=== PATIENT | female | born 1950 | race Caucasian/White ===

== ENCOUNTER 2025-02-22 23:41 | Inpatient (IN) | payer MEDICARE, BC, SELFPAY ==
[2025-02-22] VITALS (57 sets, daily range): BP systolic 59–106; BP diastolic 33–83
[2025-02-22] MEDS: NSS 500 IV ×2 (17:19→17:58)
[2025-02-22 18:02] LABS: ALT (SGPT) 19 U/L (0-35); AST (SGOT) 23 U/L (14-36); Albumin 2.0 g/dl (3.5-5.0); Alkaline Phosphatase 93 U/L (38-126); Blood Urea Nitrogen 28 mg/dl (7-17); Calcium 7.1 mg/dl (8.4-10.2); Carbon Dioxide 17 mmol/L (22-30); Chloride 106 mmol/L (98-107); Estimated Creatinine Clearance 58 ml/min; Glucose 98 mg/dl (70-99); Lipase 33 U/L (23-300); Potassium 4.3 mmol/L (3.5-5.1); Sodium 131 mmol/L (135-145); Total Protein 4.7 g/dl (6.3-8.2); eGFR > 60.00
[2025-02-22 18:05] LABS: Hematocrit 34.3 % (37.0-47.0); Hemoglobin 12.8 g/dL (12.0-16.0); Mean Corp Hgb Conc. 37.3 g/dL (33.0-37.0); Mean Corpuscular Volume 85.5 fL (81.0-99.0); Red Cell Dist. Width 22.8 % (11.5-14.5)
[2025-02-22] MEDS: SUBLIMAZE 25 MCG IV ×3 (18:16→21:16)
[2025-02-22 18:20] LABS: Absolute Neutrophils -Man Diff 12.2 10^3/uL (1.4-6.5); Normal RBC Morphology Yes; Platelet Count 613 10^3/uL (130-400); Platelets Checked Yes; Total Cells Counted 100
--- NOTE | 2025-02-22 18:37 | ED.GENMED ---
History of Present Illness
General
Chief Complaint: Abdominal Pain
Source: patient
Exam Limitations: none
Time Seen by Provider: 02/22/25 17:17
Nursing documentation reviewed up to this point in time: agreed with
History of Present Illness
History of Present Illness:
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
Abdominal pain described as sharp, diffuse, without any alleviating or exacerbating factors. Denies trauma. Denies fever or chills. Patient reports lack of bowel movements. Denies chest pain or shortness of breath. Patient reports decreased
appetite. Upon arrival, patient is found to be hypotensive.
Review of Systems
Review of Systems
Allergies reviewed?: Yes
All Other Systems: ROS reviewed and negative except as documented in HPI and ROS
Constitutional: Reports no symptoms; Denies fever
Respiratory: Reports no symptoms
Cardiac: Reports no symptoms
ABD/GI: Reports abdominal pain; Denies vomiting or diarrhea
Musculoskeletal: Reports no symptoms
Skin: Reports no symptoms
Neurological: Reports weakness
Phy Exam
Physical Exam
Physical Exam:
Physical Exam
General: moderate distress, acutely ill. afebrile. cachetic appearing. hypotensive
Head: nc/at. eomi
Neck: supple. normal range of motion.
Heart: s1/s2 regular rate and rhythm
Lungs: no acute respiratory distress. clear bilaterally
Abdomen: normal bowel sounds. no distention. mild diffuse tenderness to palpation
Neuro: alert and oriented x 3. no focal neurological deficits
Skin: no rash
Psychiatric: well kept. interactive and cooperative
Extremities: no edema. no calf tenderness.
Course
Orders/Labs/Results
Orders:
Orders
02/22/25 16:59
CXR [CR Chest Portable - 1 View] Urgent
Comment:
Reason For Exam: picc placement
Reason Study Needs to be Portable: Patient Unstable
02/22/25 17:01
Complete Blood Count/With Diff Urgent
Manual Differential Urgent
02/22/25 17:17
0.9% Sodium Chloride 500 ml [Nss] 500 ml IV BOLUS
02/22/25 17:39
Lactic Acid Urgent
02/22/25 17:40
Comprehensive Metabolic Panel Urgent
Lipase Urgent
02/22/25 17:57
0.9% Sodium Chloride 500 ml [Nss] 500 ml IV BOLUS
02/22/25 18:07
CT Abd/pelvis W Iv Cont Urgent
Comment:
Reason For Exam: abdominal pain w elevated lactate
Fentanyl Citrate/Pf [Sublimaze] 25 mcg IV NOW STA
02/22/25 19:45
NORepinephrine 4 MG/250 ML [Levophed] 4 mg in 250 ml IV PER PROTOCOL
Initial dose in mcg/min, then titrate:: 2
Titrate to keep:: SBP > 90 mmHg
Titrate by mcg/min:: 1-2 mcg/min
Frequency of titrations (minutes):: 5
Maximum dose in ICU in mcg/min:: 30
Maximum dose in IMU in mcg/min:: 8
Maximum dose in IVU in mcg/min:: 4
Begin to taper infusion when:: Remained at goal for 4hrs
Taper by mcg/min:: 1-2 mcg/min
Frequency of taper (minutes) if patient maintains goal:: 30
Taper to off?: Yes
If infusion off & no longer maintaining goal:: Contact Provider
02/22/25 20:01
Fentanyl Citrate/Pf [Sublimaze] 25 mcg IV NOW STA
02/22/25 20:02
Fentanyl Citrate/Pf [Sublimaze] 100 mcg .ROUTE .STK-MED ONE
02/22/25 21:15
Fentanyl Citrate/Pf [Sublimaze] 25 mcg IV NOW STA
02/22/25 21:32
CXR [CR Chest Portable - 1 View] Urgent
Comment:
Reason For Exam: ng tube
Reason Study Needs to be Portable: Patient Unstable
02/22/25 22:00
0.9% Sodium Chloride 1000 ml [Nss] 1,000 ml IV 100 mls/hr
02/22/25 22:43
DOPamine 400 MG/D5W 250 ML [DOPamine] 400 mg in 250 ml .ROUTE .STK-MED
02/22/25 22:45
DOPamine 400 MG/D5W 250 ML [DOPamine] 400 mg in 250 ml IV PER PROTOCOL
Initial dose in mcg/kg/min, then titrate:: 10
Titrate to keep:: SBP > 90 mmHg
Titrate by mcg/kg/min:: 1-2 mcg/kg/min
Frequency of titrations (minutes):: 15
Maximum dose in ICU in mcg/kg/min:: 20
Maximum dose in IMU in mcg/kg/min:: 10
Begin to taper infusion when:: Remained at goal for 4hrs
Taper by mcg/kg/min:: 1-2 mcg/kg/min
Frequency of taper (minutes) if patient maintains goal:: 30
Taper to off?: Yes
If infusion off & no longer maintaining goal:: Contact Provider
02/22/25 23:17
Admit/Transfer Patient As Directed
Co-Sign Provider:
Level of Care: Inpatient admission
Assign to:: ICU
Physician / Group: Hazel
Diagnosis: Perforated Bowel
Reason for Hospitalization: Pressors, IV abx
Expected length of stay greater than two midnights?: Yes
ELOS- Estimated Length of Stay in days: 3
I certify the patient meets the requirements for IP care: Yes
02/22/25 23:18
PRN Pain Medication Management As Directed
May give lesser potent ordered pain med per pt: Yes
preference::
Protocol:: Medication orders for pain may be administered in a
manner that supports deferring to patient preference
when the pt is:
- Requesting an ordered lesser potent pain medication.
Least to most potent pain medications are defined
as: acetaminophen < NSAID < tramadol < opioids
(morphine, oxycodone, hydromorphone).
- Requesting a lesser dose of the same medication IF
ORDERED.
- Requesting a less intrusive route of administration
if both routes are prescribed by the provider (PO <
IV).
02/22/25 23:19
Code Status As Directed
Resuscitation Status: Full Code
02/22/25 23:20
EPINEPHrine [Adrenalin 1 mg/10 ml] 1 mg .ROUTE .STK-MED ONE
02/22/25 23:28
Portable Chest Xray [CR Chest Portable - 1 View] Urgent
Comment:
Reason For Exam: post intubation
Reason Study Needs to be Portable: Patient Unstable
02/22/25 23:32
FentaNYL 1,000 MCG/100 ML [Sublimaze] 1,000 mcg in 100 ml .ROUTE .STK-MED
02/22/25 23:40
EKG [Electrocardiogram (*1)] Urgent
Reason for Study: Fatigue / Weakness
02/22/25 23:41
EKG- Treatment ONCE
02/22/25 23:45
Piperacillin/Tazo 3.375 Gram [Zosyn] 3.375 gram in 50 ml IV Q6H
02/23/25 01:47
FentaNYL 1,000 MCG/100 ML [Sublimaze] 1,000 mcg in 100 ml IV PER PROTOCOL
Indication:: Light Sedation
Begin Infusion:: Now
Goal:: pain score </= 1, CPOT 0-2
Maximum dose in mcg/hr:: 300
Continue currently infusing dose and titrate:: Yes
Titration Instructions:: Titrate every 30 minutes if patient exhibits signs of pain or discomfort
Titration Instructions:: (pain score >/= 2, CPOT >/= 3).
Titration Instructions:: Administer bolus dose and increase infusion by 25 mcg/hr.
Taper Instructions:: If pain score at goal for 4 consecutive hours (pain score </= 1, CPOT 0-2)
Taper Instructions:: decrease infusion by 50 mcg/hr every 2 hours.
Taper Instructions:: When dose </= 50 mcg/hr may turn infusion off and consider PRN
Taper Instructions:: intermittent bolus doses only.
Over-sedation Instructions:: If CPOT 0-2 (goal) and RASS -3 to -5 (below goal) decrease sedative by 50%
Over-sedation Instructions:: first. If pain score remains at goal and RASS remains below goal in 1 hour,
Over-sedation Instructions:: decrease opioid infusion by 50%.
Notify provider:: immediately if pt exhibits: chest wall rigidity, hemodynamic instability,
Notify provider:: agitation/pain despite maximum dosing, pain when RASS below goal.
Additional Instructions:: Patient MUST be mechanically ventilated.
Fentanyl Citrate/Pf [Sublimaze] 50 mcg IV [id number] PRN
02/23/25 01:47
Consult Notification Routine
Specialty to Notify: Flight Kitchen Manager
Flight Kitchen Manager Consult Routine
Consulting Provider: Gulshan Tong
Was physician already notified: No
Reason for consult: ICU care, perforated bowel
SURGICAL CONSULT Routine
Consulting Provider: Gulshan Montejo
Was physician already notified: Yes
Activity As Directed
Activity Level: Bedrest
Hoang Catheter [Catheter- Indwelling] As Directed
Reason for insertion: I&O's Critical Care
Assess insertion reason daily.Remove if no longer applicable: Yes
Gastrointestinal Tubes As Directed
To suction?: Yes
Type of suction: Low intermittent
I&O [Intake/ Output] As Directed
Frequency: q12h
Pneumatic Compression Sleeves As Directed
Type: Knee high
Vital Signs As Directed
Frequency: Per unit guidelines
Warming [place] [Heating/Cooling [place]] As Directed
Mode:: Automatic
Type of thermoregulation:: Heating
PATIENT'S Goal Temperature:: 96.8 F (36 C)
Comments/Additional Instructions:: Temperature and skin assessment per unit protocol
Ventilator Initial Settings [RESP] Routine
DX Deep Vein Thrombosis Video Routine
02/23/25 05:26
Complete Blood Count/No Diff IN AM
Comprehensive Metabolic Panel IN AM
Lactic Acid Q4H
Comment: repeat q4 hours x 4 or until less than 2 mmol/L
02/23/25 Breakfast
NPO
Allow oral meds: No
Allow clear liquids: No
NPO with Ice Chips: No
02/23/25 08:00
Pantoprazole [Protonix IV] 40 mg IV DAILY
Abnormal Lab Results
02/22/25 02/22/25 02/22/25
17:01 17:39 17:40
WBC 14.3 H 10^3/uL
(4.8-10.8)
RBC 4.01 L 10^6/uL
(4.20-5.40)
Hct 34.3 L %
(37.0-47.0)
MCH 31.9 H pg
(27.0-31.0)
MCHC 37.3 H g/dL
(33.0-37.0)
RDW 22.8 H %
(11.5-14.5)
Plt Count 613 H 10^3/uL
(130-400)
Abs Neuts (Manual) 12.2 H 10^3/uL
(1.4-6.5)
Band Neutrophils 15 H %
(0-3)
Lymphocytes (Manual) 5 L %
(20-51)
Sodium 131 L mmol/L
(135-145)
Carbon Dioxide 17 L mmol/L
(22-30)
BUN 28 H mg/dl
(7-17)
Lactic Acid 6.3 H* mmol/L
(0.7-2.0)
Calcium 7.1 L mg/dl
(8.4-10.2)
Total Protein 4.7 L g/dl
(6.3-8.2)
Albumin 2.0 L g/dl
(3.5-5.0)
02/22/25 17:01
02/22/25 17:40
Vital Signs
Initial and Last Documented VS:
Initial Vital Signs
Pulse Resp BP Pulse Ox
95 32 80/52 94
02/22/25 16:33 02/22/25 16:33 02/22/25 16:33 02/22/25 16:33
Last Documented Vital Signs
Temp Pulse Resp BP Pulse Ox
92.0 F L 92 24 115/93 61
02/23/25 06:00 02/23/25 06:00 02/23/25 06:00 02/23/25 06:00 02/23/25 06:00
Procedures
Intubations
Procedure completed by: Brandan Lopez M.D.
Method of Intubation: glidescope
Tube size (cm): 7.5
Placement confirmed by: auscutation and CXR
Breath sounds after intubation: equal
Intubation complications: no complications
MDM/Problems Addressed
MDM/Problems Addressed:
CT report reviewed and discussed with patient and family. Patient is currently full code.
Patient remains hypotensive despite IV fluid administration along with persistent pain. As such, patient started on Levophed infusion and NG tube placed in ED.
On-call surgery, Dr. Montejo, notified via Bryant text. Patient will be admitted to ICU for further evaluation and treatment.
Patient evaluated in ED by Dr. Montejo, due to patient's instability along with significant findings noted on CT scan. Afterwards, discussed patient's clinical condition send findings with [facility] surgical oncology service
(). In light of patient's unstable condition, decision made to transfer patient to the OR at [facility] for acute intervention. Afterwards, after patient is stabilized, patient will be transferred to [facility] for further evaluation and treatment.
Pt requiring dopamine infusion as well, due to persistent hypotension despite max dose of Levophed infusion. Discussed with patient and her son at bedside extensively regarding patient's clinical condition. At this time, patient wishes to proceed
to OR and agrees to be intubated for airway protection as well as worsening mental status.
Patient successfully intubated in ED and started on fentanyl infusion.
Transfer consent on the chart, signed by patient's son.
Critical care statement: A total of 100 minutes of critical care time was provided for this patient. This includes management of unstable vital signs, evaluation of the patient at bedside, reviewing the patient's pertinent medical records,
discussion with consultants, review of old EKGs and review of pertinent medical records. This time with separate from time utilized to perform the aforementioned documented procedures
*Pulse Oximetry
SaO2: 99
Nasal Cannula flow liters per minute: 2
Oxygen Mode of Delivery: Room air
Patient hypoxic: yes
*Critical Care Note
Total Time (30-74mins, 75-104mins- exclusive of procedures): 100 min
ED Attending Note
-
Portions of this chart may have been created with voice recognition software.� Occasional wrong word or��sound alike� substitutions may have occurred due to the inherent limitations of voice recognition software.
Discharge Plan
Departure
Patient Disposition: Admit
Date of Disposition: 02/22/25
Time of Disposition: 21:39
Admit to: ICU
Presentation/result/management discussed w/ accepting MD/DO: Hospitalist
Discharge Problem:
SBO (small bowel obstruction)
Interventions
Interventions:
*Risk Screen - Suicide Last Done: 02/22/25 16:33
*General Assessment Last Done: 02/22/25 16:33
*Neglect/Abuse Screening Last Done: 02/22/25 16:33
*ED- Fall Risk Assessment Last Done: 02/23/25 00:30
*ED COVID-19 Vaccine History Last Done: 02/22/25 16:33
*ED Influenza Vaccine History Last Done: 02/22/25 16:33
*Nursing Disposition Last Done: 02/23/25 00:30
PT-Nubohg-Amshjkhwih Assessment Last Done: 02/22/25 23:15
Discharge Date and Time
Discharge Date/Time: 02/23/25 00:30
[2025-02-22] MEDS: LEVOPHED 250 IV (19:46)
[2025-02-22] MEDS: NSS 1000 IV (21:50)
--- NOTE | 2025-02-22 23:17 | CON.GS ---
Medical History
-
Chief Complaint: Abdominal pain, altered mental status
History of Present Illness:
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 Her son reports that her tube has had issues with
leakage of ascites since placement. She was ultimately discharged to a senior living. She has had worsening pain over the past week and been in contact with her Oncologist at [facility]. There were plans for a paracentesis either today or tomorrow.
Due to worsening pain she presented to the ER. No fevers or chills. No nausea or vomitting. She has been previously treated and managed by [facility] Oncology and Surg Onc.
Past Medical History
Past Medical History: Cancer (Stage IV neuroendocrine), GERD and Other (Malignant bowel obstructions)
Past Surgical History: Other (PEG)
Social History
Tobacco: Non-Smoker
Alcohol: None
Drug: None
Family History
Family History: Reviewed & Not Pertinent
Allergies / Home Medications
Allergy/AdvReac Type Severity Reaction Status Date / Time
Sulfa (Sulfonamide Allergy Unknown Verified 02/22/25 16:49
Antibiotics)
�Medication �Instructions �Recorded �Confirmed �Type
acetaminophen 325 mg tablet 650 mg PO Q6HPRN PRN mild pain 02/22/25 02/22/25 History
(Tylenol)
bisacodyl 10 mg rectal suppository 10 mg NH HSPRN PRN if no bm aftr 02/22/25 02/22/25 History
(Dulcolax (bisacodyl)) mom
magnesium hydroxide 400 mg/5 mL 2,400 mg PO [id number] PRN 02/22/25 02/22/25 History
oral suspension (Milk of Magnesia) constipation
metoclopramide HCl 5 mg tablet 5 mg PO Q8HPRN PRN nausea 02/22/25 02/22/25 History
(Reglan)
mirtazapine 15 mg tablet (Remeron) 15 mg PO HS Sleep 02/22/25 02/22/25 History
omeprazole 20 mg tablet,delayed 20 mg PO DAILY Gastrointestinal 02/22/25 02/22/25 History
release Issue
ondansetron HCl 4 mg tablet 4 mg PO Q8HPRN PRN nausea 02/22/25 02/22/25 History
oxycodone 5 mg tablet 5 mg PO Q6HPRN PRN severe pains 02/22/25 02/22/25 History
sodium phosphates 19 gram-7 118 ml NH DAILYPRN PRN if n bm 02/22/25 02/22/25 History
gram/118 mL enema (Fleet Enema) aftr dulcolax
Review of Systems
-
A 10 point review of systems was completed, and was negative except as per HPI.
Physical Exam
Vital Signs
Temp Pulse Resp BP Pulse Ox
94.9 F L 92 26 63/46 93
02/22/25 22:35 02/22/25 23:15 02/22/25 23:15 02/22/25 23:10 02/22/25 23:00
02/21/25 02/22/25 02/23/25
06:59 06:59 06:59
Actual Weight 55.5 kg
Lab Results
02/22/25 17:01
02/22/25 17:40
WBC 14.3 10^3/uL (4.8-10.8) H 02/22/25 17:01
Hgb 12.8 g/dL (12.0-16.0) 02/22/25 17:01
Hct 34.3 % (37.0-47.0) L 02/22/25 17:01
Plt Count 613 10^3/uL (130-400) H 02/22/25 17:01
Physical Exam
General: Pain, Intubated (Malnourished) and Other
Respiratory: Accessory Resp Muscle Use
Cardiac: Irregular Rhythm (Tachycardic)
GI: Soft, Tender (Diffusely), Distended, Incisions (No prior incisions) and Other (Large volume of ascites leaking around G-tube)
Musculoskeletal: Edema (+2)
Skin: Warm and Dry
Data Reviewed
-
Radiology: Image Personally Visualized and interpreted and Report Reviewed by me
CT Scan: Image Personally Visualized and interpreted and Report Reviewed by me
Labs: Labs Reviewed by me
Assessment / Plan
-
Patient is a 74 yo F p/w septic shock likely related to a perforated viscus secondary to PEG tube dislodgement
Clinically unstable, intubated and on pressors. CT demonstrates large volume of ascites, free air, and G-tube no longer within a loop of bowel. Options for management were reviewed. Bowel rest and antibiotics are unlikely to resolve this issue.
That being said, given her underlying diagnosis, this option and a focus on comfort measures was reviewed. Her only chance of survival is surgical exploration with repair of perforation, possible bowel resection. Son and DPOA was present and
wishes to proceed. Patient expresses that she wishes to be a full code at this time, including intubation.
Plan for an exploratory laparotomy, possible bowel resection. The procedure itself, as well as the risks, benefits, and alternatives was discussed. Specifically, we discussed the risks of bleeding, infection, injury to surrounding structures,
hernia formation, and general anesthetic complications. We discussed the likelihood of prolonged intubation and hospital course. All questions answered. Consent signed.
-- Exploratory laparotomy, possible bowel resection
-- NPO, IVF
-- Abx: Zosyn
-- Admit to ICU post-op
-- Transfer to [facility], acepted to ICU bed for post-op care
[2025-02-22] MEDS: ZOSYN 50 IV (23:32)
--- NOTE | 2025-02-22 23:45 | HPS.HSE ---
Family Physician
-
Family Physician: Joe Rivera,
Chief Complaint
-
Abdominal pain
History of Present Illness
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
abdominal pain.
She was recently hospitalized and is status post PEG tube placement. She had ascites. After that hospitalization [facility] According to son patient has been having pain since at least Saturday. Initially
thought this was secondary to ascites as the PEG tube site was leaking. There was blood drawn and plans for a paracentesis. However patient continued to have significant pain. Initially was managed with Tylenol but more recently they had to give
her oxycodone. Today the patient was in extreme pain and son requested that she be transferred to the emergency department.
By time I saw her in the emergency department patient was intubated. She was septic on pressors status post IV fluids. She has a PICC line, she has a urinary catheter. She is on 2 pressors.
Leukocytosis with to 14.3 with 15% bands, hemoglobin 12.8 platelets 613, electrolytes were normal except for a bicarb of 17 with a BUN of 20 and a creatinine of 0.7. Lactic acid was 6.3. LFTs were normal. Lipase was normal.
Chest x-ray status post intubation without any acute infiltrates.
CT a/p
Patient has a reported history of gastrostomy tube placement recently. Tube with balloon or button in the anterior left upper quadrant is not within a bowel loop.
There is a large amount of free intraperitoneal air.
Large amount of ascites within the abdomen and pelvis.
CT findings compatible with small bowel obstruction, likely on the basis of peritoneal carcinomatosis involving mid to distal small bowel loops.
Thickening of dilated small bowel loops involving the jejunum and possibly the proximal ileum. Etiology for this bowel wall thickening is uncertain, with differential considerations including ischemia and enteritis.
Evidence for hepatic metastatic disease.
The main portal vein is unable to be confidently visualized. There is perfusion anomaly involving the right lobe the liver.
Medical History
Past Medical History
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
Past Surgical History: Reports Other
Social History
Tobacco: Non-smoker
Alcohol: None
Drug: None
Family History
Family History: Not pertinent
Allergies / Home Medications
Allergies reflects when Allergies were last updated in [email or web address].
Home Medications with original date entered in [email or web address]
Allergy/Medication List:
Allergies
Allergy/AdvReac Type Severity Reaction Status Date / Time
Sulfa (Sulfonamide Allergy Unknown Verified 02/22/25 16:49
Antibiotics)
Home Medications
acetaminophen 325 mg tablet (Tylenol) 650 mg PO Q6HPRN PRN mild pain 02/22/25
bisacodyl 10 mg rectal suppository (Dulcolax (bisacodyl)) 10 mg TN HSPRN PRN if no bm aftr mom 02/22/25
magnesium hydroxide 400 mg/5 mL oral suspension (Milk of Magnesia) 2,400 mg PO [id number] PRN constipation 02/22/25
metoclopramide HCl 5 mg tablet (Reglan) 5 mg PO Q8HPRN PRN nausea 02/22/25
mirtazapine 15 mg tablet (Remeron) 15 mg PO HS Sleep 02/22/25
omeprazole 20 mg tablet,delayed release 20 mg PO DAILY Gastrointestinal Issue 02/22/25
ondansetron HCl 4 mg tablet 4 mg PO Q8HPRN PRN nausea 02/22/25
oxycodone 5 mg tablet 5 mg PO Q6HPRN PRN severe pains 02/22/25
sodium phosphates 19 gram-7 gram/118 mL enema (Fleet Enema) 118 ml TN DAILYPRN PRN if n bm aftr dulcolax 02/22/25
Review of Systems
-
Unable to obtain full review of systems at this time due to: Patient Intubation
Physical Exam
Vital Signs
Vital Signs
Temp Pulse Resp BP Pulse Ox
94.9 F L 86 12 65/55 93
02/22/25 22:35 02/22/25 23:35 02/22/25 23:35 02/22/25 23:35 02/22/25 23:00
Physical Exam
General: Other (Cachectic appearing, intubated)
HEENT: Anicteric and Atraumatic
Respiratory: Non Labored Respirations and Other (Intubated)
Cardiac: S1/S2 and Regular Rhythm
Breast: Deferred by me
GI: Peg Tube
Rectal: Deferred by Provider
Genito-urinary: Hoang
Musculoskeletal: No Edema
Skin: Warm
Neuro: Sedated
Laboratory Results
-
02/22/25 17:01
02/22/25 17:40
Laboratory Results
Lactic Acid 6.3 mmol/L (0.7-2.0) H* 02/22/25 17:39
Total Bilirubin 0.7 mg/dl (0.2-1.3) 02/22/25 17:40
AST 23 U/L (14-36) 02/22/25 17:40
ALT 19 U/L (0-35) 02/22/25 17:40
Alkaline Phosphatase 93 U/L (38-126) 02/22/25 17:40
Lipase 33 U/L (23-300) 02/22/25 17:40
Data Reviewed
-
CT Scan: Report Reviewed by me
Lab Data: Labs Reviewed by me
Old Records: Reviewed
Impression/Plan
-
IMPRESSION:
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
shock. Patient declined rapidly requiring pressors and intubated in the ED. Taken to the OR prior to my full evaluation. Findings and actions in OR include Large 1.5 cm perforation within the small bowel, closed with 2-0 Vicryl whip-stitch and
2-0 silk [place], 2. Smaller perforation of gastric body along greater curve at site of prior G-tube, closed with 2-0 silk 3. Extensive malignant disease with frozen abdomen and SBO resulting in significant associated small bowel ischemia (resection
of which incompatible with life; 50 cc remaining with no clear distal anastomotic option)
PLAN:
Sepsis with vascular shock and multiorgan failure 2/2 perforated viscous
- admit to icu
- intubated and on 4 pressors
- On IV abx
- fluid/electrolyte/acid base management per ICU
- guarded status
Perforated Viscous - Traumatic along site of G-tube, complicated by SBO and associated small bowel ischemia which cannot be resected
- due to findings above, there is high mortality
- No CPR, no defibrillation
- appreciate surgical management and will follow recs
- surgery consulted
DVT PPX - SCD
Codes status - DNR
--- NOTE | 2025-02-22 23:47 | W.SUR.PREOP ---
Pre-Operative Surgical Note
-
I have examined this patient prior to the performance of the scheduled procedure.
The patient's condition is unchanged from the time of the current History and
Physical and the patient is able to undergo the scheduled procedure.
[2025-02-23] VITALS (15 sets, daily range): BP systolic 99–143; BP diastolic 50–94
[2025-02-23] MEDS: SUBLIMAZE 2.5 IV
--- NOTE | 2025-02-23 01:41 | W.IMMPOSTOP ---
Surgical Immed Post Op Note
-
Primary Surgeon: Gustabo
Assisting Surgeon: None
Pre-op Diagnosis: Perforated viscus
Post-op Diagnosis: Perforated viscus and bowel ischemia
Procedure Performed: Exploratory laparotomy, primary repair of gastric and small bowel perforations
Anesthesia Type: General
Specimen / Cultures: None
Estimated Blood Loss: 7 cc
Complications: Critically ill with sepsis POA and ischemia incompatible with life
Operative Findings:
1. Large 1.5 cm perforation within the small bowel, closed with 2-0 Vicryl whip-stitch and 2-0 silk Lembert
2. Smaller perforation of gastric body along greater curve at site of prior G-tube, closed with 2-0 silk
3. 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
[2025-02-23] MEDS: LEVOPHED 250 IV ×2 (02:00→04:00)
[2025-02-23] MEDS: PITRESSIN 100 IV (02:05)
[2025-02-23 02:10] LABS: B.E. -16.5 mmol/L; O2 Saturation % 98.1 % (94-98); PCO2 39 mmHg (32-35); PO2 349 mmHg (83-108)
[2025-02-23 02:12] LABS: O2 Therapy VENT
[2025-02-23 02:13] LABS: HCO3 12.1 mmol/L (21-28)
[2025-02-23] MEDS: SODIUM BICARBONATE 1150 MEQ IV (02:27)
[2025-02-23 02:28] LABS: INR 1.68; PT 20.0 Sec (11.4-14.6)
[2025-02-23] MEDS: LR 1000 IV ×2 (02:28→03:11)
[2025-02-23 02:29] LABS: APTT 39.4 Sec (23.4-35.0)
[2025-02-23 02:38] LABS: Hematocrit 28.8 % (37.0-47.0); Hemoglobin 9.3 g/dL (12.0-16.0); Mean Corp Hgb Conc. 32.3 g/dL (33.0-37.0); Mean Corpuscular Volume 85.5 fL (81.0-99.0); Platelet Count 471 10^3/uL (130-400); Red Cell Dist. Width 21.1 % (11.5-14.5)
[2025-02-23] MEDS: CALCIUM GLUCONATE 100 IV (02:45)
[2025-02-23] MEDS: FLEXBUMIN 100 IV (02:57)
[2025-02-23 03:35] LABS: Blood Urea Nitrogen 24 mg/dl (7-17); Calcium 5.9 mg/dl (8.4-10.2); Carbon Dioxide 15 mmol/L (22-30); Chloride 106 mmol/L (98-107); Estimated Creatinine Clearance 58 ml/min; Glucose 113 mg/dl (70-99); Magnesium 2.1 mg/dl (1.6-2.3); Potassium 4.9 mmol/L (3.5-5.1); Sodium 127 mmol/L (135-145); eGFR > 60.00
--- NOTE | 2025-02-23 03:53 | CHAP ---
Called in lieu of trolley coach driver for prayers of commendation. Prayers shared, prayer blanket given, stories shared by Loren's son at bedside. Will call trolley coach driver in the morning if she is still with us.
[2025-02-23 04:26] LABS: Urine Character Slightly Cloudy (Clear)
--- NOTE | 2025-02-23 04:30 | PTCARENOTE ---
Assumed care of patient at approximately 0145. Report received from [employer]. Received patient on multiple pressors, hemodynamically unstable. Patient intubated on no sedation - no cough/gag/corneal reflexes. Does not withdraw to pain/no purposeful
movements. Family at bedside. Ongoing goals of care discussion.
--- NOTE | 2025-02-23 05:05 | W.PN.SEPSIS ---
Sepsis
Vital Signs
Temp Pulse Resp BP Pulse Ox
93.0 F L 84 22 121/92 98
02/23/25 00:09 02/23/25 03:15 02/23/25 03:15 02/23/25 02:45 02/23/25 00:09
Physical Exam
Physical Exam:
A focused exam was performed after fluid resuscitation.
Capillary Refill
Bilateral Upper Extremity:
Jim Time: Less than 3 sec
Bilateral Lower Extremity:
Jim Time: Less than 3 sec
Pulse Evaluation
Bilateral Radial:
Pulse Evaluation: Present
Bilateral Dorsalis Pedis:
Pulse Evaluation: Present
[2025-02-23 05:32] LABS: Urine Red Blood Cell 0-2 /HPF (0-2)
[2025-02-23 05:38] LABS: B.E. -17.1 mmol/L; O2 Saturation % 96.2 % (94-98); PCO2 31 mmHg (32-35); PO2 124 mmHg (83-108)
[2025-02-23 05:40] LABS: O2 Therapy VENT
[2025-02-23 05:42] LABS: HCO3 10.6 mmol/L (21-28)
[2025-02-23 05:43] LABS: Hematocrit 28.8 % (37.0-47.0); Hemoglobin 9.4 g/dL (12.0-16.0); Mean Corp Hgb Conc. 32.6 g/dL (33.0-37.0); Mean Corpuscular Volume 85.7 fL (81.0-99.0); Platelet Count 465 10^3/uL (130-400); Red Cell Dist. Width 21.0 % (11.5-14.5)
[2025-02-23 06:10] LABS: ALT (SGPT) 479 U/L (0-35); Albumin 2.2 g/dl (3.5-5.0); Alkaline Phosphatase 69 U/L (38-126); Blood Urea Nitrogen 24 mg/dl (7-17); Calcium 6.9 mg/dl (8.4-10.2); Carbon Dioxide 14 mmol/L (22-30); Chloride 102 mmol/L (98-107); Estimated Creatinine Clearance 58 ml/min; Glucose 124 mg/dl (70-99); Potassium 5.1 mmol/L (3.5-5.1); Sodium 127 mmol/L (135-145); Total Protein 4.3 g/dl (6.3-8.2); eGFR > 60.00
[2025-02-23] MEDS: ATIVAN 1 MG IV (06:17)
[2025-02-23] MEDS: SUBLIMAZE 50 MCG IV (06:18)
--- NOTE | 2025-02-23 06:25 | RESPNOTE ---
PT was administered meds for comfort and anxiety and terminally extubated at this time and placed on room air, family is at the bedside.
[2025-02-23 06:27] LABS: AST (SGOT) 1375 U/L (14-36)
--- NOTE | 2025-02-23 06:30 | W.PN.UPDATE ---
Update Note
Progress Note Update
02/23/25
0200- Received patient back from OR. Hypotensive on multiple vasopressors: dopamine, levophed, epinephrine gtts; and added vasopressin. Additional LR 1L and bicarb gtt for metabolic acidosis.
0300- Patient's son Gurmeet updated, overall poor prognosis, and discussed plan of care, answered all questions. Code status changed to DNR (no CPR, defibrillation, or ACLS medications). Transfer to [facility] cancelled due to critical condition and
multiple vasopressors, would be unstable for transfer.
0630- Family discussed comfort measures, all questions answered. Patient given fentanyl for pain and terminally extubated transitioned to comfort measures.
0639- Patient pronounced . Vacuum Caster called Mena Eli, no jurisdiction.
--- NOTE | 2025-02-23 06:51 | W.PN.DEATH ---
Pronouncement of
-
Called to see patient to pronounce.
No spontaneous heart tones or respirations noted.
Patient not responsive to verbal stimuli.
Patient is pronounced .
Time of : 06:39
Date of : 02/23/25
Cause of : septic shock, Perforated viscus and bowel ischemia
Family Notified: Yes (family at bedside at time of )
--- NOTE | 2025-02-23 07:22 | PTCARENOTE ---
After family discussion w/ POSITIVE PRINTER OPERATOR - decision made to terminally extubate. Patient premedicated w/ Fentanyl and Ativan - see JUN. Patient terminally extubated at 0625. Patient became asystolic at 0639. POSITIVE PRINTER OPERATOR notified. [facility] notified, pt not
suitable for donation due to systemic infection.
--- NOTE | 2025-02-23 07:57 | PTCARENOTE ---
Pt. on previous shift. GOL notified by overnight RN. R art line, R DL PICC, and jones removed. Monitor d/c'd. Postmortem care provided by this RN. Pt. transported to [facility]. No further needs from this RN.
== END 2025-02-23 06:39 | disposition expired | DRG 853 ==
LOC: ICU 23:41
PROVIDERS: Nurse Practitioner Family; Physician Assistant Medical; ADMITTING PHYSICIAN Internal Medicine; ATTENDING PHYSICIAN Internal Medicine; CONSULT PHYSICIAN Surgery; EMERGENCY PHYSICIAN Emergency Medicine; FAMILY PHYSICIAN Student in an Organized Health Care Education/Training Program
PROC: 0DQ60ZZ Repair Stomach, Open Approach (ICD-10-PCS; 2025-02-23)
PROC: 0DQ80ZZ Repair Small Intestine, Open Approach (ICD-10-PCS; 2025-02-23)
DX: A41.9 Sepsis, unspecified organism (principal); K25.5 Chronic or unspecified gastric ulcer with perforation; K63.1 Perforation of intestine (nontraumatic); R65.21 Severe sepsis with septic shock; K55.029 Acute infarction of small intestine, extent unspecified; C78.6 Secondary malignant neoplasm of retroperitoneum and peritoneum; C78.7 Secondary malignant neoplasm of liver and intrahepatic bile duct; K56.699 Other intestinal obstruction unspecified as to partial versus complete obstruction; R18.8 Other ascites; E87.20 Acidosis, unspecified; C26.0 Malignant neoplasm of intestinal tract, part unspecified; Z66 Do not resuscitate; Z51.5 Encounter for palliative care; Z79.899 Other long term (current) drug therapy
CPT/HCPCS: 31500; 71045; 74177; 80048; 80053; 81003; 81015; 82550; 82805; 83605; 83690; 83735; 84100; 85025; 85027; 85610; 85730; 86850; 86900; 86901; 87040; 87070; 87086; 87205; 93005; 94002; 96361; 96374; 96375; 96376; 99291; 99292; C1776; P9047; Q9967